=== PATIENT | male | born 1980 | race Caucasian/White ===

== ENCOUNTER 2016-04-29 18:56 | Emergency (ER) | payer SELFPAY | END 2016-04-29 20:41 | disposition home or self-care (01) | LOC: D.ER 18:56 | DX: S43.402A Unspecified sprain of left shoulder joint, initial encounter (principal); Y93.64 Activity, baseball; Y92.830 Public park as the place of occurrence of the external cause; I10 Essential (primary) hypertension; F17.200 Nicotine dependence, unspecified, uncomplicated ==

== ENCOUNTER → 2016-05-07 14:10 | Outpatient (CLI) | payer OTHER | END | disposition home or self-care (01) | LOC: D.MRI 05-06 15:00 | DX: M54.32 Sciatica, left side (principal); M25.512 Pain in left shoulder ==

== ENCOUNTER 2016-11-02 05:16 | Day surgery (SDC) | payer BC ==
[~2016-11-02] VITALS: Ht 182.9 cm; Wt 77.1 kg
--- NOTE | ~2016-11-02 | OP ---
PATIENT NAME: ELIZABETH LEE MEDICAL RECORD: [id number] :84 LOCATION:[facility] ADMISSION DATE: SURGEON: EVAN COUCH MD DATE OF OPERATION: 11/02/2016 PREOPERATIVE DIAGNOSES: Impingement syndrome, rotator cuff tear and nondisplaced greater tuberosity fracture of the left shoulder. POSTOPERATIVE DIAGNOSES: Impingement syndrome, rotator cuff tear and nondisplaced greater tuberosity fracture of the left shoulder. PROCEDURES: 1. Arthroscopic assisted ORIF of the greater tuberosity. 2. Rotator cuff repair of the right shoulder arthroscopically 3. Subacromial decompression. 4. Distal clavicle excision. SURGEON: Evan Couch MD ANESTHESIA: General. INTRAOPERATIVE COMPLICATIONS: None. SUMMARY OF PATHOLOGIC FINDINGS: The patient had a small inferior osteophyte on the distal clavicle, type 3 acromion with excoriation of the coracoacromial ligament, rotator cuff tear as well as a nondisplaced fracture of the greater tuberosity seen on the MRI. OPERATIVE SUMMARY IN DETAIL: After obtaining the appropriate preoperative orthopedic surgery consent as well as anesthetic consultation, evaluation and clearance, the patient was brought to the operating room and placed on the operating table in supine position. After general laryngeal mask was administered, the patient was placed in a right lateral decubitus position. All pressure points were well padded to include down leg peroneal pad as well as axillary roll. The patient was held firmly to the operating table using the vacuum pack suction system. Left upper extremity and shoulder were then prepped and draped in a routine sterile fashion. The arm was held in the Arthrex traction boom at 30 degrees of forward flexion, 30 degrees of abduction with 10 pounds of traction laterally. Arthroscopy was established in the glenohumeral joint from a posterior portal. Anterior portal was established in the anterior safe interval. Diagnostic arthroscopy revealed the above findings. Attention was turned to the greater tuberosity fixation. Arthroscopy was established in the glenohumeral joint and the fracture fragment itself was located and isolated, it was essentially nondisplaced. A guidewire was placed percutaneously into the fracture itself and then a 40 mm compression screw from Arthrex was placed into the fracture fragment itself. Next, a second 40 mm screw was placed more anteriorly again under direct arthroscopic visualization. Having completed this, a small rotator cuff tear was debrided and fixed [id number] with a single arthroscopic FiberWire placed in a [id number] fashion. Having completed this, the coracoacromial ligament was released with the Rutledge tissue ablation system and then acromioplasty was done to the acromioclavicular joint. Lastly, a small osteophytes were taken off the distal aspect of the clavicle. Having completed this, arthroscopy portals were closed in routine interrupted fashion using 4-0 Prolene. Sterile dressings were applied. The patient was awakened, taken to recovery room in stable condition. OPERATIVE REPORT [id number] ELIZABETH LEE All final needle and sponge counts were correct. TRANSINT:[id number] Voice Confirmation ID: [id number] DOCUMENT ID: [id number] KHOA BERNABE, EVAN WALKER CC: [id number] DICTATION DATE: 11/02/161728 DRY CELL TESTER: 11/02/162149 [facility] 11/02/16 [facility] [address] [place] [address]
[~2016-11-02 05:16] MED LIST: DESERYL100 MG PO; HYDROCODONE-APA1 TAB PO; KLONOPIN0.5 MG PO; PROPRANOLOL HCL20 MG PO; PROZAC20 MG PO
[2016-11-02 10:18] VITALS: BP 109/67; Ht 182.9 cm; Wt 77.1 kg
[2016-11-02] MEDS ORDERED: DILAUDID8 MG PO (13:05)
[2016-11-02] MEDS ORDERED: HYDROCODONE-APA1 TAB PO (13:05)
--- NOTE | 2016-11-02 17:16 | NUR ---
1600 DRESSED. AWAKE & ALERT. GIVEN DISCHARGE INFORMATION INCLUDING: RX X'S 2: DILAUDID, & NORCO , MED REC., PERIPHERAL NERVE BLOCK POST-OP INSTUCTIONS, POST OPERATIVE INSTURCTIONS FOR ARTHROSCOPY OF THE SHOULDER, PENDULUM EXERCISE SHEET, & [facility] OPS D/C INSTRUCTIONS. PT VOICED UNDERSTANDING AFTER INFORMATION DISCUSSED. TO PRIVATE CAR PER WHEELCHAIR BY THIS NURSE. HOME WITH MOTHER. Liza BAH R.N.
== END 2016-11-02 16:00 | disposition home or self-care (01) ==
LOC: D.OPS 05:16 → D.PAN 10:30 → D.OPS 11:00
DX: M75.42 Impingement syndrome of left shoulder (principal); M75.112 Incomplete rotator cuff tear or rupture of left shoulder, not specified as traumatic; S42.92XA Fracture of left shoulder girdle, part unspecified, initial encounter for closed fracture; Z79.899 Other long term (current) drug therapy

== ENCOUNTER → 2017-11-29 09:47 | Outpatient (CLI) | payer MEDICAID ==
[2016-11-02 10:18] VITALS: BMI 23.1
[~2017-11-29 09:47] MED LIST changes: +AMBIEN10 MG PO; +DILAUDID8 MG PO; +EFFEXOR75 MG PO; +NORCO 10-325 TA1 TAB PO
== END | disposition home or self-care (01) ==
LOC: D.MRI 09:47
DX: M25.562 Pain in left knee (principal)

== ENCOUNTER 2017-12-13 06:00 | Day surgery (SDC) | payer MEDICAID ==
[~2017-12-13] VITALS: Ht 180.3 cm; Wt 77.1 kg
--- NOTE | ~2017-12-13 | OP ---
PATIENT NAME: ELIZABETH LEE MEDICAL RECORD: [id number] :84 LOCATION:[facility] ADMISSION DATE: SURGEON: EVAN COUCH MD DATE OF OPERATION: 12/13/2017 PREOPERATIVE DIAGNOSES: 1. Lateral meniscus tear. 2. Lateral based parameniscal cyst. POSTOPERATIVE DIAGNOSES: 1. Lateral meniscus tear. 2. Lateral based parameniscal cyst. PROCEDURES: 1. Arthroscopic partial lateral meniscectomy. 2. Open removal of lateral parameniscal cyst with capsular repair. OPERATIVE SUMMARY IN DETAIL: After obtaining the appropriate preoperative orthopedic surgery consent as well as anesthetic consultation, evaluation and clearance, the patient was brought to the operating room and placed on the operating table in supine position. After general laryngeal mask airway was administered, tourniquet was placed about the proximal aspect of left lower extremity. Left lower extremity was then prepped and draped in routine sterile fashion. The leg was elevated and exsanguinated. Tourniquet inflated to 350 mmHg. Routine inferolateral portal was established followed by superomedial portal and inferior medial portal. Diagnostic arthroscopy showed pristine medial compartment as well as a relatively pristine lateral compartment; however, there was horizontal cleavage plane tear at the lateral meniscus. Combination of arthroscopic meniscotome as well as an arthroscopic resector were utilized to debride the cleavage plane, the inferior aspect of which was taken down in its entirety. At this point, attention was turned to the lateral meniscus cyst. A small incision was made over the lateral meniscus cyst. Dissection was carried both inferiorly, superiorly, medially and laterally about the cyst, it was isolated in its entirety and removed. Small rent in the capsule was oversewn with a 2-0 Ethibond. This was then followed by closure of this incision with a 4-0 Prolene. The knee itself was insufflated with 30 cc of 0.25% Marcaine with epinephrine and 40 mg of Depo-Medrol. Arthroscopy portals were closed likewise. Sterile dressings were applied. The tourniquet was deflated. The patient was awakened and taken to recovery room in stable condition. All final needle and sponge counts were correct. TRANSINT:[id number] Voice Confirmation ID: [id number] DOCUMENT ID: [id number] EVAN COUCH MD at 0843 CC: [id number] DICTATION DATE: 12/16/17 1406 [employer] [employer]: 12/16/17 1425 [facility] 12/13/17 [facility] [address] [place] [id number]
[~2017-12-13 06:00] MED LIST changes: -NORCO 10-325 TA1 TAB PO
[2017-12-13 06:20] VITALS: BP 123/77; Ht 180.3 cm; Wt 77.1 kg
[2017-12-13] MEDS ORDERED: NORCO 10-325 TA1 TAB PO (08:30)
== END 2017-12-13 12:10 | disposition home or self-care (01) ==
LOC: D.OPS 06:00 → D.PAN 11:15 → D.OPS 12:10
DX: S83.282A Other tear of lateral meniscus, current injury, left knee, initial encounter (principal); M23.001 Cystic meniscus, unspecified lateral meniscus, left knee; Z01.812 Encounter for preprocedural laboratory examination

== ENCOUNTER 2018-05-14 23:39 | Emergency (ER) | payer MEDICAID ==
[~2018-05-14] VITALS: Ht 180.3 cm; Wt 81.6 kg
[~2018-05-14 23:39] MED LIST changes: +NORCO 10-325 TA1 TAB PO
[2018-05-14 23:43] VITALS: Ht 180.3 cm; Wt 81.6 kg
[2018-05-14 23:59] LABS: APPEARANCE CLEAR (CLEAR); BILIRUBIN NEGATIVE (NEGATIVE); COLOR YELLOW (YELLOW); GLUCOSE NEGATIVE (NEGATIVE); KETONE NEGATIVE (NEGATIVE); NITRITE NEGATIVE (NEGATIVE); PROTEIN NEGATIVE (NEGATIVE); SPECIFIC GRAVITY 1.015 (1.005-1.020); UROBILINOGEN NORMAL (NORMAL)
[2018-05-14 23:59] LABS: BASOPHILS 0.5 % (0-2); EOSINOPHILS 3.9 % (0-7); HEMOGLOBIN 14.9 g/dL (13.5-17.5); IMMATURE GRANULOCYTES 0.5 % (0-5); LYMPHOCYTES 53.7 % (15-50); MCH 33.6 pg (26.0-34.0); MCHC 36.3 g/dL (31.0-37.0); MCV 92.6 fL (80.0-100.0); MEAN PLATELET VOLUME 9.5 fL (7.4-10.4); MONOCYTES 9.9 % (2-11); NEUTROPHILS 31.5 % (40-80); PLATELET COUNT 246 10x3/uL (130-400); RBC 4.43 10x6/uL (4.20-6.10); RDW 11.7 % (11.5-14.5); WBC 6.5 10x3/uL (4.8-10.8)
[2018-05-15 00:08] LABS: UDS - AMPHET NEGATIVE QUAL (NEGATIVE); UDS - BARB NEGATIVE QUAL (NEGATIVE); UDS - BENZO NEGATIVE QUAL (NEGATIVE); UDS - COCAINE NEGATIVE QUAL (NEGATIVE); UDS - OPIATE NEGATIVE QUAL (NEGATIVE); UDS - PCP NEGATIVE QUAL (NEGATIVE); UDS - THC NEGATIVE QUAL (NEGATIVE)
[2018-05-15 00:31] LABS: CALC OSMOLALITY 280 mosm/kg (275-300); CALCIUM 9.4 mg/dL (8.5-10.1); CARBON DIOXIDE 27.6 mmol/L (21.0-32.0); CHLORIDE - SERUM 102 mmol/L (98-107); GLUCOSE 111 mg/dL (74-106); SODIUM 141 mmol/L (136-145); THYROID STIMULATING HORMONE 1.92 uIU/mL (0.36-3.74); UREA NITROGEN 9 mg/dL (7-18); eGFR NON AFRICAN AMERICAN 90 mL/min (90-120)
[2018-05-15 03:37] VITALS: BP 138/90
== END 2018-05-15 03:40 ==
LOC: D.ER 23:39
PROVIDERS: Family Medicine
DX: F32.9 Major depressive disorder, single episode, unspecified (principal); R45.851 Suicidal ideations